=== PATIENT | female | born 1955 | race African-American/Black ===

== ENCOUNTER 2023-07-31 06:22 | Inpatient (IN) | payer OTHER, MEDICAID ==
[~2023-07-31] VITALS: Ht 162.6 cm; Wt 94.0 kg
[2023-07-31 06:52] VITALS: PULSE 60; RESP 18; O2SAT 98
[2023-07-31] MEDS: SODIUM CHLORIDE 0.9% 1,000 ML IV ONE (06:57)
[2023-07-31 07:18] LABS: Basophils # (auto) 0.1 10 ^3/uL (0-0.2); Basophils % (auto) 1.1 % (0.0-2.0); Eosinophils # (auto) 0.1 10 ^3/uL (0-0.8); Hemoglobin 11.5 g/dL (12.2-16.2); Monocytes # (auto) 0.6 10 ^3/uL (0-1.3); Nucleated Red Blood Cells % 0.1 %
[2023-07-31 07:19] LABS: Chloride 108 mmol/L (98-107); Potassium 3.9 mmol/L (3.5-5.1); Sodium 141 mmol/L (136-145)
[2023-07-31 07:20] LABS: Anion Gap 5 (5-15); Carbon Dioxide 28 mmol/L (20-30)
[2023-07-31 07:21] LABS: Calcium 9.3 mg/dL (8.5-10.1); Eosinophils % (auto) 2.7 % (0.0-7.0); Hematocrit 34.7 % (36.0-46.0); Lymphocytes % (auto) 38.9 % (10.0-50.0); Mean Corpuscular Hemoglobin 26.4 pg (28.0-32.0); Mean Corpuscular Hgb Conc. 33.1 g/dL (32.0-36.0); Mean Corpuscular Volume 79.8 fL (80.0-100.0); Monocytes % (auto) 11.4 % (0.0-12.0); Neutrophils # (auto) 2.4 10 ^3/uL (1.6-8.6); Neutrophils % (auto) 45.9 % (37.0-80.0); Red Blood Cells 4.35 10^6/uL (4.0-5.20); Red Cell Distribution Width 15.3 % (11.8-14.3); White Blood Cell 5.2 10^3/uL (4.4-10.8)
[2023-07-31 07:25] LABS: BUN/Creatinine Ratio 13.8 (10.0-20.0); Blood Urea Nitrogen 13 mg/dL (9-23); Glucose 148 mg/dL (74-106)
[2023-07-31] MEDS: CARVEDILOL 12.5 MG TAB PO ONE (08:21)
[2023-07-31] MEDS: LOSARTAN POTASSIUM 50 MG TAB PO ONE (08:21)
[2023-07-31 08:29] LABS: Urine Bacteria FEW /hpf (None Seen); Urine Blood Negative /uL (Negative); Urine Budding Yeast OCCASIONAL /hpf (None Seen); Urine Clarity Clear (Clear); Urine Protein, UAD Negative (Negative); Urine Specific Gravity 1.007 (1.001-1.035); Urine Urobilinogen Normal (Negative); Urine WBC 1 /hpf (0 - 5)
[2023-07-31 08:32] LABS: Urine Color Yellow (Yellow)
[2023-07-31] MEDS ORDERED: ONDANSETRON HCL 4 MG/2 ML VIAL IV PRN (08:45)
[2023-07-31] MEDS ORDERED: DEXTROSE (50%) 50ML SYRG IV PRN (08:45)
[2023-07-31] MEDS: ENOXAPARIN SOD 40 MG/0.4 ML SYRINGE SC SCH (10:00)
[2023-07-31] MEDS ORDERED: cloNIDine 0.3 mg/24hr 7DAY PATCH TD ONE (10:30)
[2023-07-31] MEDS ORDERED: NIFEdipine 10 MG CAP PO ONE (10:30)
[2023-07-31] MEDS: NIFEdipine ER 30 MG TAB PO SCH (10:36)
[2023-07-31] MEDS: ASPirin 81 mg TAB PO SCH (10:36)
[2023-07-31] MEDS: ALLOPURINOL 100 MG TAB PO SCH (10:36)
[2023-07-31] MEDS: hydrALAZINE HCL 20 MG/ML VL IV PRN (11:06)
[2023-07-31 11:10] VITALS: BP 183/85; PULSE 117; RESP 16; RESP 18; TEMP 97.3; O2SAT 99
[2023-07-31] MEDS: ACCU-CHEK COMFORT CURVE STRIP VI SCH (11:30)
[2023-07-31] MEDS: InsuLIN REG 1unit/0.01ml Soln (100units/ml) SC SCH (11:30)
[2023-07-31 13:00] VITALS: BP 145/75; PULSE 75; RESP 18; TEMP 98; O2SAT 100
[2023-07-31] MEDS: cloNIDine HCL 0.1 MG TAB PO SCH (14:37)
[2023-07-31 17:00] VITALS: BP 137/79; PULSE 65; RESP 16; TEMP 97.8; O2SAT 99
[2023-07-31 20:00] VITALS: PULSE 65; RESP 18; O2SAT 97
[2023-07-31] MEDS: ACETAMINOPHEN 325 MG TAB PO PRN (20:02)
[2023-07-31 21:00] VITALS: BP 164/80; PULSE 64; RESP 18; TEMP 98; O2SAT 97
[2023-07-31] MEDS: CARVEDILOL 12.5 MG TAB PO SCH (21:08)
[2023-07-31] MEDS: ATORVASTATIN 20 MG TAB PO SCH (21:09)
[2023-07-31] MEDS: LOSARTAN POTASSIUM 50 MG TAB PO SCH (21:09)
[2023-08-01] VITALS (7 sets, daily range): BP systolic 133–177; BP diastolic 78–88; PULSE 60–117; RESP 16–22; TEMP 98–98.5; O2SAT 95–99
[2023-08-01] MEDS ORDERED: LORazepam 2MG/ML-1ML VIAL IV PRN (18:15)
[2023-08-01 19:24] LABS: Triglycerides 151 mg/dL (< 150)
[2023-08-01 19:25] LABS: LDL Cholesterol 66 mg/dL (< 100)
[2023-08-01 19:26] LABS: Cholesterol 120 mg/dL (< 200); HDL Cholesterol 35 mg/dL (40-59)
[2023-08-02 01:00] VITALS: BP 160/85; PULSE 61; RESP 20; TEMP 97.6; O2SAT 96
[2023-08-02] MEDS: SUMAtriptan SUCCINATE 25 MG TAB PO PRN (04:44)
[2023-08-02 05:00] VITALS: BP 140/84; PULSE 65; RESP 22; TEMP 97.6; O2SAT 97
[2023-08-02 08:00] VITALS: PULSE 64; RESP 16; O2SAT 98
[2023-08-02 09:00] VITALS: BP 154/83; PULSE 64; RESP 16; TEMP 98.1; O2SAT 98
[2023-08-02 13:00] VITALS: BP 158/101; PULSE 65; RESP 18; TEMP 98.1; O2SAT 99
== END 2023-08-02 15:25 | disposition left against medical advice (07) | DRG 305 ==
LOC: EDBD 06:22 → ER 06:22 → OVERFLOW 08:46 → WEST WING 12:50
PROVIDERS: ADMIT Nurse Practitioner; ATTEND Family Medicine
DX: I16.1 Hypertensive emergency (principal); I67.4 Hypertensive encephalopathy; M10.9 Gout, unspecified; F41.9 Anxiety disorder, unspecified; F17.200 Nicotine dependence, unspecified, uncomplicated; E78.00 Pure hypercholesterolemia, unspecified; Z53.29 Procedure and treatment not carried out because of patient's decision for other reasons; Z90.49 Acquired absence of other specified parts of digestive tract; Z79.899 Other long term (current) drug therapy; Z83.3 Family history of diabetes mellitus; Z82.49 Family history of ischemic heart disease and other diseases of the circulatory system; Z82.3 Family history of stroke; Z88.5 Allergy status to narcotic agent; Z88.2 Allergy status to sulfonamides; Z79.82 Long term (current) use of aspirin; Z79.4 Long term (current) use of insulin; E11.65 Type 2 diabetes mellitus with hyperglycemia; I10 Essential (primary) hypertension
CPT/HCPCS: 36415; 70450; 80048; 80061; 81001; 82962; 84484; 85025; 93005; 93306; 93886; 95819; 96360; G0378; J1815